=== PATIENT | female | born 1960 | race Caucasian/White ===

== ENCOUNTER 2018-01-08 18:15 | Inpatient (IN) | payer OTHER ==
[~2018-01-08] VITALS: Ht 170.1 cm; Wt 99.8 kg
--- NOTE | ~2018-01-08 | WRIGHTHP ---
[place], [place] PATIENT HISTORY AND PHYSICAL EXAM NAME: LUCA CRANE UNIT #: [id number] ROOM: 310 DOCTOR: LUIS ENRIQUE DELCID MD BIRTHDATE: [birth year] DOS: 01/09/2018 INITIAL PSYCHIATRIC EVALUATION CHIEF COMPLAINT: "I have just been so depressed and stressed out." HISTORY OF PRESENT ILLNESS: This is a 57-year-old black female who was sent here on an involuntary basis from [facility]. The patient had earlier in the day been on the phone with [employer] disputing some financial issues. When she lost her claim with [employer], she voiced to them the thought that she wanted to take her own. [facility] dispatched EMS to her residence and the EMS brought her to [facility] for further evaluation where she was subsequently sent here on an involuntary basis to further assess lethality. The patient does admit to a lengthy history of major depression and does follow with Dr. Yanick Bell in [place]. She also has a counselor in his office as well. She endorses poor sleep and appetite, energy, anhedonia, hopeless and helpless feelings, crying spells and inability to cope. She is admitted now to rule out further organic factors and to assess lethality. PAST MEDICAL HISTORY: Remarkable for allergies to PENICILLIN and multiple seasonal issues. SOCIAL HISTORY: The patient does not drink alcohol, smoke cigarettes or use any illicit drugs. MENTAL STATUS: She is alert and oriented. Mood does seem to be rather depressed with some anxious overtones. She endorses some mood lability as well. She also endorses significant neurovegetative symptoms and states that the only reason that she sleeps is because of her current psychotropic regimen. She has overriding anxiety, mostly driven by social situations. There are no psychotic symptoms present. No auditory or visual hallucinations, delusions or paranoia. Memory for the most part is fully intact. DIAGNOSIS: Major depression, recurrent. PLAN: I will go ahead and restart her Remeron 15 mg at bedtime. She was taking 30 mg at home by lowering it. I am hoping to further assist her sleep. The patient had been taking a relatively high dose of Seroquel both during the day and at night. I will discontinue this in lieu of Latuda 40 mg at bedtime in an effort to lessen her daytime somnolence, but still benefit her nighttime sleep. We will engage her in individual and calles milieu activity with the ultimate plan to discharge to the least restrictive environment when psychiatrically stable. [place], [place] PATIENT HISTORY AND PHYSICAL EXAM NAME: LUCA CRANE UNIT #: [id number] ROOM: 310 DOCTOR: LUIS ENRIQUE DELCID MD BIRTHDATE: [birth year] LUIS ENRIQUE DELCID MD CM:HISPHYS:PATIENT HISTORY AND PHYSICAL EXAMINATION [id number] LUIS ENRIQUE DELCID MD 01/09/18 1008 interface
[2018-01-08] MEDS ORDERED: LAMICTAL100 MG PO (18:36)
[2018-01-08] MEDS ORDERED: REMERON30 M1 PO (18:36)
[2018-01-08] MEDS ORDERED: SEROQUEL300 MG PO (18:37)
[2018-01-08] MEDS ORDERED: SEROQUEL100 MG PO (18:37)
[2018-01-08] MEDS ORDERED: EFFEXOR-XR75 MG PO (18:38)
[2018-01-08 20:50] VITALS: BP 144/79
[2018-01-08 21:18] VITALS: BP 144/79
[2018-01-08 23:22] LABS: BILIRUBIN NEGATIVE (NEGATIVE); BLOOD NEGATIVE (NEGATIVE); CLARITY SL CLOUDY (CLEAR); COLOR YELLOW (YELLOW); GLUCOSE NEGATIVE (NEGATIVE); KETONE NEGATIVE (NEGATIVE); LEUKO ESTERASE NEGATIVE (NEGATIVE); NITRITE NEGATIVE (NEGATIVE); PH 5.5 (5.0-9.0); SPECIFIC GRAVITY >= 1.030 (1.005-1.030); UROBILINOGEN 0.2 E.U./dl (0.2-1.0)
[2018-01-08 23:35] LABS: BACTERIA TRACE; EPITHELIAL CELLS 16-20; MUCOUS 1+
[2018-01-09 06:19] LABS: BASO % 0.5 % (0.0-1.0); EOS # 0.1 10*3/uL (0.0-0.4); EOS % 2.2 % (1.0-4.0); HEMATOCRIT 37.3 % (37.0-47.0); HEMOGLOBIN 12.2 g/dl (12.0-16.0); LYMPH % 31.6 % (27.0-41.0); MEAN CELL VOLUME 90.5 fl (81.0-99.0); MEAN CORPUSCULAR HGB 29.6 pg (27.0-31.0); MEAN CORPUSCULAR HGB CONC 32.7 g/dl (33.0-37.0); MEAN PLATELET VOLUME 10.1 fl (9.6-12.3); MONO # 0.4 10*3/uL (0.1-1.0); MONO % 5.6 % (3.0-9.0); NEUT # 3.8 10*3/uL (2.3-7.9); NEUT % 59.8 % (47.0-73.0); PLATELET COUNT AUTOMATED 238 10*3/uL (130-400); RED BLOOD COUNT 4.12 10*6/uL (4.10-5.10); RED CELL DISTRI WIDTH 12.3 % (0-14.5); WHITE BLOOD COUNT 6.3 10*3/uL (4.8-10.8)
[2018-01-09 06:43] LABS: ALBUMIN 3.4 gm/dl (3.1-4.5); ALKALINE PHOSPHATASE 81 U/L (45-117); BUN 14 mg/dl (7-24); CHLORIDE 107 mmol/L (98-107); CHOLESTEROL 171 mg/dL (<200); CREATININE 0.99 mg/dL (0.55-1.02); HDL CHOLESTEROL 73 mg/dl (40-60); LDL CHOLESTEROL 84 mg/dL (9-159); POTASSIUM 4.3 mmol/L (3.5-5.1); SGOT/AST 14 IU/L (3-35); SGPT/ALT 18 U/L (12-78); SODIUM 143 mmol/L (136-145); TOTAL PROTEIN 6.7 gm/dL (6.4-8.2); TRIGLYCERIDES 69 mg/dl (<150); VLDL CHOLESTEROL 14 mg/dL (6-40)
[2018-01-09 06:50] LABS: THYROID STIM HORMONE (HS) 0.823 uIU/ml (0.358-4.75)
[2018-01-09 07:59] VITALS: BP 123/62
[2018-01-09 11:25] LABS: VITAMIN D, 25-HYDROXY 27.3 ng/mL (30-100)
[2018-01-09] MEDS ORDERED: LATU40TA PO (14:39)
== END 2018-01-09 15:10 | disposition home or self-care (01) | DRG 885 ==
LOC: 3N 18:15
PROVIDERS: Psychiatry & Neurology Psychiatry
DX: F33.9 Major depressive disorder, recurrent, unspecified (principal); R45.851 Suicidal ideations; E66.9 Obesity, unspecified; R03.0 Elevated blood-pressure reading, without diagnosis of hypertension; Z88.0 Allergy status to penicillin; Z80.0 Family history of malignant neoplasm of digestive organs; Z79.899 Other long term (current) drug therapy; Z68.34 Body mass index [BMI] 34.0-34.9, adult